=== PATIENT | female | born 1975 | race Caucasian/White ===

== ENCOUNTER 2017-09-25 08:57 | Emergency (ER) | payer OTHER ==
[~2017-09-25] VITALS: Ht 170.2 cm; Wt 70.0 kg
[2017-09-25 09:09] VITALS: BP 122/75; PULSE 86; RESP 17; TEMP 98.2; O2SAT 98
--- NOTE | 2017-09-25 09:16 | PD ---
HPI Chief Complaint: Medication Refill Request Time Seen by Provider: 09:11 Travel History International Travel<30 days: No Contact w/Intl Traveler<30days: No Traveled to known affect area: No History of Present Illness HPI 42-year-old female presents emergency department for refill of her medications. Patient suffers from recurrent migraines, depression, and hypertension. She states no acute medical issues, but is currently waiting for primary care due to recent insurance change. Patient's current meds include Effexor 150 mg daily, losartan 50 mg daily, hydrochlorothiazide 25 mg daily, Topamax 200 mg daily, and Maxalt as needed for migraine #12. She is allergic to diphenhydramine. [facility] Social History Alcohol Use: No Tobacco Use: No Substance Use: No Allergies-Medications (Allergen,Severity, Reaction): Coded Allergies: diphenhydramine (Verified Allergy, Severe, Tachycardia, 09/25/17) Reported Meds & Prescriptions Reported Meds & Active Scripts Active Reported Rizatriptan (Rizatriptan Benzoate) 10 Mg Tab 1 Tab PO DAILY Losartan (Losartan Potassium) 50 Mg Tab 50 Mg PO DAILY Venlafaxine ER 24 HR (Venlafaxine HCl) 150 Mg Cap 150 Mg PO DAILY Hydrochlorothiazide 25 Mg Tab 25 Mg PO DAILY PRN Topiramate 200 Mg Tab 200 Mg PO DAILY Review of Systems Except as stated in HPI: all other systems reviewed are Neg General / Constitutional: No: Fever Eyes: No: Visual changes HENT: No: Headaches Cardiovascular: No: Chest Pain or Discomfort Respiratory: No: Shortness of Breath Gastrointestinal: No: Abdominal Pain Genitourinary: No: Dysuria Musculoskeletal: No: Pain Skin: No Rash Neurologic: No: Weakness Psychiatric: No: Depression Endocrine: No: Polydipsia Hematologic/Lymphatic: No: Easy Bruising Physical Exam Narrative GENERAL: Patient appears in no obvious distress. SKIN: Warm and dry. HEAD: Atraumatic. Normocephalic. EYES: Pupils equal and round. No scleral icterus. No injection or drainage. ENT: No nasal bleeding or discharge. Mucous membranes pink and moist. Pharynx is clear. Airways patent NECK: Trachea midline. Supple nontender. CARDIOVASCULAR: Regular rate and rhythm. RESPIRATORY: No accessory muscle use. Clear to auscultation. Breath sounds equal bilaterally. GASTROINTESTINAL: Abdomen soft, non-tender, nondistended. Hepatic and splenic margins not palpable. MUSCULOSKELETAL: Extremities without clubbing, cyanosis, or edema. No obvious deformities. NEUROLOGICAL: Awake and alert. No obvious cranial nerve deficits. Motor grossly within normal limits. Five out of 5 muscle strength in the arms and legs. Normal speech. PSYCHIATRIC: Appropriate mood and affect; insight and judgment normal. Data Data Last Documented VS Vital Signs Date Time Temp Pulse Resp B/P (MAP) Pulse Ox O2 Delivery O2 Flow Rate FiO2 09/25/17 09:09 98.2 86 17 122/75 (91) 98 MDM Medical Decision Making Medical Screen Exam Complete: Yes Emergency Medical Condition: Yes Differential Diagnosis Hypertension. Depression. Migraine. Medication refill Narrative Course Patient is medically stable at time of exam. Patient is given refills of all her meds with 2 refills. Patient to follow with primary care physician for further refills as needed. Diagnosis Primary Impression: Encounter for medication refill Additional Impressions: Migraines Qualified Codes: G43.909 - Migraine, unspecified, not intractable, without status migrainosus Depression Qualified Codes: F32.9 - Major depressive disorder, single episode, unspecified Hypertension Qualified Codes: I10 - Essential (primary) hypertension Patient Instructions: General Instructions Departure Forms: Tests/Procedures Additional Instructions: Patient is medically stable at time of exam. Patient is given refills of all her meds with 2 refills. Patient to follow with primary care physician for further refills as needed. Med/Other Pt SpecificInfo: Prescription(s) given Scripts Venlafaxine ER 24 HR (Venlafaxine ER 24 HR) 150 Mg Cap 150 MG PO DAILY, #30 CAP 2 Refills Prov: Davian Quarles MD 09/25/17 Topiramate (Topiramate) 200 Mg Tab 200 MG PO DAILY for Control Seizures, #30 TAB 2 Refills Prov: Davian Quarles MD 09/25/17 Rizatriptan (Maxalt) 10 Mg Tab 1 TAB PO DAILY Y for HEADACHE, #12 2 Refills Prov: Davian Quarles MD 09/25/17 Losartan (Losartan) 50 Mg Tab 50 MG PO DAILY for Blood Pressure Management, #30 TAB 2 Refills Prov: Davian Quarles MD 09/25/17 Hydrochlorothiazide (Hydrochlorothiazide) 25 Mg Tab 25 MG PO DAILY, #30 TAB 2 Refills Prov: Davian Quarles MD 09/25/17 Disposition: 01 DISCHARGE HOME Condition: Stable Steven Gao Sep 25, 2017 09:16
[2017-09-25] MEDS ORDERED: VENL150C39 PO ×2 (09:17→09:22)
[2017-09-25] MEDS ORDERED: HYDR25TA5 PO ×2 (09:17→09:22)
[2017-09-25] MEDS ORDERED: LOSA50TA PO ×2 (09:17→09:22)
[2017-09-25] MEDS ORDERED: TOPI200T7 PO ×2 (09:17→09:22)
[2017-09-25] MEDS ORDERED: RIZA10TA2 PO (09:17)
[2017-09-25] MEDS ORDERED: MAXA10TA2 PO (09:22)
== END 2017-09-25 09:31 | disposition home or self-care (01) ==
LOC: NEPK 08:57
DX: G43.909 Migraine, unspecified, not intractable, without status migrainosus (principal); F32.9 Major depressive disorder, single episode, unspecified; I10 Essential (primary) hypertension; Z76.0 Encounter for issue of repeat prescription
CPT/HCPCS: 99281